=== PATIENT | female | born 1940 | race Two or more races ===

== ENCOUNTER 2025-05-26 10:32 | Emergency (ER) | payer OTHER ==
[~2025-05-26] VITALS: Ht 149.9 cm; Wt 63.0 kg
[2025-05-26] MEDS ORDERED: NOVOLOG MI100 UNIT/1 (10:42)
[2025-05-26] MEDS ORDERED: ALENDRONATE SOD70 MG (10:43)
[2025-05-26] MEDS ORDERED: LIPITOR20 MG (10:43)
[2025-05-26] MEDS ORDERED: ZESTRIL5 MG (10:43)
[2025-05-26] MEDS ORDERED: CLINDAMYCIN PHOSPHATE 150 MG/ML (600mg) IV ONE (11:00)
[2025-05-26] MEDS ORDERED: LIDOCAINE HCL 1% 10ML VIAL ONE (11:14)
[2025-05-26] MEDS ORDERED: KETOROLAC TROMETHAMINE 30 MG VIAL IV ONE (11:15)
[2025-05-26] MEDS ORDERED: LISINOPRIL 5 MG TABLET PO ONE (11:15)
[2025-05-26] MEDS ORDERED: ACETAMINOPHEN 500 MG GEL..CAP PO ONE ×2 (11:15→11:19)
[2025-05-26] MEDS ORDERED: SODIUM CHLORIDE 0.45 % 500 ML IV ONE (11:15)
[2025-05-26] MEDS ORDERED: KETOROLAC TROMETHAMINE 30 MG VIAL ONE (11:18)
[2025-05-26] MEDS ORDERED: CLINDAMYCIN PHOSPHATE 150 MG/ML (300mg) ONE (11:19)
[2025-05-26 11:50] LABS: BASO % 0.2 % (0.1-1.2); EOS # 0.08 (0.04-0.54); EOS % 0.9 % (0.7-7.0); LYMPH # 2.26 (1.18-3.74); LYMPH % 26.1 % (19.3-53.1); MEAN PLATELET VOLUME 11.00 fl (9.4-12.4); MONO # 0.64 (0.24-0.82); MONO % 7.4 % (4.7-12.5); NEUT # 5.64 (1.56-6.13); NEUT % 65.2 % (34.0-71.1); RED CELL DISTRIBUTION WIDTH 14.3 % (11.6-14.4)
[2025-05-26 12:14] LABS: INR 0.97
[2025-05-26 12:15] LABS: ERYTHROCYTE SEDIMENTATION RATE 17 mm/hr (0-30)
[2025-05-26 12:19] LABS: ALT/SGPT 40.0 U/L (12-78); AST/SGOT 26.0 U/L (15-37); BILIRUBIN TOTAL 0.61 mg/dL (0.3-1.2); BUN CREA RATIO 17.0 (7.0-25.0); CREATININE SERUM 0.82 mg/dL (0.55-1.02); GFR 66.74; GLOBULINA 4.1 G/DL (2.4-3.5); GLUCOSE FASTING 115.0 mg/dL (65-100); OSMOLALITY SERUM 286.0 MOSM/KG (275-295)
[2025-05-26 12:48] LABS: URINE APPEARANCE Clear; URINE BILIRRUBIN Negative (NEGATIVE); URINE BLOOD Negative; URINE COLOR Yellow; URINE GLUCOSE Negative (NEGATIVE); URINE KETONE Negative (NEGATIVE); URINE LEUKOCYTE Negative; URINE NITRATE Negative; URINE PROTEIN Negative (NEGATIVE); URINE UROBILINOGEN 0.2 E.U./dl
[2025-05-26 12:52] LABS: URINE EPITHELIAL CELLS 3.8 uL (0.0-38.8)
[2025-05-26 12:58] LABS: URINE BACTERIA 3.5 uL (0.0-1933); URINE CAST 0.00 uL (0.0-1.40); URINE RBC 0.8 uL (0.0-20.8); URINE WBC 1.3 uL (0.0-23.2)
[2025-05-26] MEDS ORDERED: AMOX-CLAV 875-1 EAC1 PO (13:28)
== END 2025-05-26 13:59 | disposition home or self-care (01) ==
LOC: ER 10:32
DX: N61.1 Abscess of the breast and nipple (principal); I10 Essential (primary) hypertension; E78.00 Pure hypercholesterolemia, unspecified; E11.9 Type 2 diabetes mellitus without complications; Z79.4 Long term (current) use of insulin
CPT/HCPCS: 36415; 96365; 99282; J1885; J3490